=== PATIENT | female | born 1935 | race Caucasian/White ===

== ENCOUNTER → 2016-06-27 | Outpatient (CLI) | payer MEDICARE, OTHER ==
--- NOTE | 2016-06-27 14:14 | KCIC ---
MR LUMBAR SPINE HISTORY:Reason For StudyReason: CHRONIC LBP AND SCIATICA / Spl. Instructions: Prev MR sent to PACS / History: Chronic LBP but more recently rt sacral pain. Technique: Sagittal T2, sagittal STIR, and sagittal T1-weighted images were obtained. Additional axial T1 and T2 weighted imaging was also performed. FINDINGS: There is grade 1 spondylolisthesis of L5 on S1. There is also grade 1 degenerative anterolisthesis of L3 on L4 and L2 on L3. There is no compression fracture. Overall bone marrow signal is within normal limits apart from degenerative endplate changes. The conus terminates normally at the level of L1. Visualized intra-abdominal contents are within normal limits. At L5-S1 there is advanced degenerative disc height loss and grade 1 spondylolisthesis with bilateral L5 pars defects. There is osteophytic encroachment of the bilateral neural foramina resulting in severe bilateral foraminal stenosis probable for L5 radiculopathy symptoms. At L4-L5 there is a small disc bulge and mild disc height loss. There is also bilateral facet arthropathy worse on the left resulting in moderate to severe left and moderate right foraminal stenosis. At L3-L4 there is moderate bilateral facet arthropathy with significant ligamentum flavum thickening and a broad-based disc protrusion. This causes moderate to severe central spinal stenosis. The protruding disc extends into the right foramina resulting in severe right foraminal stenosis. There is facet encroachment of the left foramina causing severe left foraminal stenosis. Correlate for L3 radiculopathy symptoms. At L2-L3 there is a disc protrusion and mild facet hypertrophy. There is also ligamentum flavum thickening. This results in moderate central spinal stenosis and moderate bilateral neural foraminal stenosis. At L1-L2 there is mild facet arthropathy a broad-based disc bulge that extends into the bilateral foramina causing mild bilateral foraminal stenosis. Impression: - Multilevel degenerative disc and facet disease as detailed at each level above. This is most severe at L5-S1 where there is grade 1 degenerative anterolisthesis with bilateral L5 pars defects resulting in severe bilateral foraminal stenosis. There is also severe bilateral foraminal stenosis and moderate to severe central spinal stenosis at the level of L3-L4. Electronically signed by: Benson Bonds (Jun 27, 2016 14:14:04)
== END | disposition home or self-care (01) ==
LOC: KCIC MRI 13:04
PROVIDERS: ATTEND Family Medicine
DX: M51.36 Other intervertebral disc degeneration, lumbar region (principal); M48.06 Spinal stenosis, lumbar region
CPT/HCPCS: 72148